=== PATIENT | male | born 1975 | race Caucasian/White ===

== ENCOUNTER 2021-01-23 05:55 | Observation (INO) | payer OTHER ==
[~2021-01-23] VITALS: Ht 175.3 cm; Wt 99.7 kg
[2021-01-23 08:02] LABS: HEMOGLOBIN 15.3 gm/dl (14.0-17.5); RED BLOOD COUNT 5.07 M/UL (4.20-5.50); WHITE BLOOD COUNT 9.4 K/UL (4.5-11.0)
[2021-01-23 08:29] LABS: BUN/CREATININE RATIO 16 (0-10)
[2021-01-23] MEDS ORDERED: METFORMIN HCL500 MG PO (14:51)
[2021-01-23] MEDS ORDERED: JARDIANCE10 MG PO (14:51)
[2021-01-23] MEDS ORDERED: FENOFIBRATE67 MG PO (14:52)
[2021-01-23] MEDS ORDERED: ENTRESTO 49 MG1 EACH PO (14:53)
[2021-01-23] MEDS ORDERED: LANTUS SOL100 UNIT/1 INJ (14:55)
[2021-01-23] MEDS ORDERED: ELIQUIS5 MG PO (14:56)
[2021-01-23] MEDS ORDERED: ASPIRIN EC81 MG PO (14:56)
[2021-01-23] MEDS ORDERED: ATORVASTATIN CA80 MG PO (14:56)
[2021-01-23] MEDS ORDERED: NEXIUM20 MG PO (14:57)
[2021-01-23] MEDS ORDERED: RANOLAZINE ER1000 MG PO (14:57)
[2021-01-23 16:26] LABS: BUN/CREATININE RATIO 20 (0-10)
[2021-01-24 05:31] LABS: HEMOGLOBIN 15.5 gm/dl (14.0-17.5); RED BLOOD COUNT 4.94 M/UL (4.20-5.50)
[2021-01-24 05:43] LABS: WHITE BLOOD COUNT 16.1 K/UL (4.5-11.0)
[2021-01-24 05:57] LABS: BUN/CREATININE RATIO 21 (0-10)
--- NOTE | 2021-01-24 17:40 | NUR ---
PT REQUESTING A CHANGE IN DIET FROM THE KITCHEN HE SAID I NEEDED TO CALL THEM AND ORDER HIM A SOUP, SANDWICH AND SALAD. HE HAS BEEN EDUCATED ON HIS NEED FOR A RESTRICTED DIET. HE SAID HE DOES NOT CARE HE KNOWS WHAT HE CAN AND CAN NOT HAVE. HE HAS CALLED DIETARY SEVERAL TIMES TODAY FOR CHANGES.
[2021-01-25 06:28] LABS: HEMOGLOBIN 14.7 gm/dl (14.0-17.5); RED BLOOD COUNT 4.61 M/UL (4.20-5.50)
[2021-01-25 06:31] LABS: WHITE BLOOD COUNT 9.7 K/UL (4.5-11.0)
[2021-01-25 07:22] LABS: BUN/CREATININE RATIO 27 (0-10)
[2021-01-25] MEDS ORDERED: BACTRIM 400-801 EACH PO (11:28)
== END 2021-01-25 13:16 | disposition home or self-care (01) ==
LOC: ER1 05:55 → CDU 11:31 → M/S 11:31
PROVIDERS: Emergency Medicine; Physician Assistant; Physician Assistant Medical; ADMIT Internal Medicine
DX: L03.221 Cellulitis of neck (principal); I25.10 Atherosclerotic heart disease of native coronary artery without angina pectoris; Z95.5 Presence of coronary angioplasty implant and graft; I10 Essential (primary) hypertension; E78.5 Hyperlipidemia, unspecified; Z88.1 Allergy status to other antibiotic agents; Z88.8 Allergy status to other drugs, medicaments and biological substances; Z88.6 Allergy status to analgesic agent; Z87.891 Personal history of nicotine dependence; E87.5 Hyperkalemia; I25.2 Old myocardial infarction; E11.65 Type 2 diabetes mellitus with hyperglycemia; E87.1 Hypo-osmolality and hyponatremia; Z20.822 Contact with and (suspected) exposure to COVID-19
CPT/HCPCS: 36415; 70491; 73030; 80048; 80053; 80202; 81001; 82570; 82962; 83036; 83605; 83735; 83935; 84300; 85025; 85027; 85652; 86140; 87040; 96374; 96375; 99285; G0378; J0692; J1170; J1200; J2270; J2405; J2930; J3370; J7030; J7070; Q9967; U0002